=== PATIENT | female | born 1950 | race Caucasian/White ===

== ENCOUNTER 2022-01-19 19:02 | Emergency (ER) | payer MEDICARE, MEDICAID ==
[~2022-01-19] VITALS: Ht 152.4 cm; Wt 63.5 kg
[~2022-01-19 19:02] MED LIST: ALEVE220 MG PO; MEDROL DOSEPAK4 MG PO; ZYRTEC10 MG PO
== END 2022-01-19 22:17 | disposition home or self-care (01) ==
LOC: ED 19:02
DX: S86.912A Strain of unspecified muscle(s) and tendon(s) at lower leg level, left leg, initial encounter (principal); S99.922A Unspecified injury of left foot, initial encounter; Z98.890 Other specified postprocedural states; Z88.0 Allergy status to penicillin; X50.1XXA Overexertion from prolonged static or awkward postures, initial encounter; Y93.89 Activity, other specified; Y92.89 Other specified places as the place of occurrence of the external cause; Y99.9 Unspecified external cause status